=== PATIENT | female | born 1990 | race Caucasian/White ===

== ENCOUNTER 2016-12-07 18:38 | Emergency (ER) | payer OTHER ==
--- NOTE | 2016-12-07 19:41 | ED NURSING NOTES ---
Clinical Report - Nurses [facility] [address] [place] [address] 12/07/2016 18:40 Patient: DAKOTA NOLEN TRIAGE Triage time 18:45 Dec 07 2016. Acuity: LEVEL 3. Chief Complaint: CHEST PAIN and DISCOMFORT. Alert. No acute distress. --18:53 Ananya Frazier R.N. 18:45 12/07/16. BP: 127/90. HR: 102. RR: 18. O2 saturation: 98%. Temp: 98.2 F. Pain level now 5/10. --18:53 Ananya Frazier R.N. Weight: 97.5 kg stated. Height/Length: 66 inches Per Patient. BMI: 34.7. --18:45 Ananya Frazier R.N. Medications None. --18:49 Ananya Frazier R.N. Medication/allergy information source: the patient. --18:53 Ananya Frazier R.N. Allergies Compazine. (tardive dyskinesa) --18:49 Ananya Frazier R.N. History Arrived by private vehicle. Historian: patient. Primary physician (Dr. Guerrero LEAL). ( Right Shoulder pain started last night, now radiates to the right side of chest, radiates to the upper right back. Pt states she has a "physical strenuous job and uses her upper body" and may have overused her shoulder. Pt called into work and staff asked her to get evaluated.). This started last night. 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 PAST MEDICAL HX: Immunizations: seasonal influenza. Last normal menstrual period- period months ago. Uses an intrauterine device. Denies current . SOCIAL HX: Former smoker, end date 04/2016. Alcohol use. No drug use. No marijuana. No infectious disease exposure. FALL RISK ASSESSMENT: Fall risk assessment completed. No fall risk identified. NUTRITIONAL RISK ASSESSMENT: The nutritional risk assessment revealed no deficiencies. FUNCTIONAL ASSESSMENT: Functional assessment: no impairments noted. LEARNING NEEDS ASSESSMENT: The learning needs assessment revealed no barriers. SKIN INTEGRITY ASSESSMENT: Skin integrity risk assessment completed. No skin integrity risk identified. --18:53 Ananya Frazier R.N. PROBLEMS: Back Pain. Renal Colic. Ureterolithiasis. Pyelonephritis. Urinary Calculi. Nephrolithiasis. Kidney. Abdominal Pain. Gastroenteritis. Ovarian Cyst. Immunizations. Pharyngitis. Glaucoma. Bronchitis. Sinusitis. LNMP - Last Normal Menstrual Period. --18:51 Ananya Frazier R.N. ADDITIONAL SURGERIES: Cataract Surgery. Cholecystectomy. Eye surgery . --18:51 Ananya Frazier R.N. Interventions ID band on patient. To room. --18:53 Ananya Frazier R.N. NURSING PROGRESS NOTES matrix drier tender, pulse oximeter and NIBP monitor placed on patient; client services associate- Lead II. Patient gowned. Head of bed elevated. Reassurance given. --18:53 Ananya Frazier R.N. ( Pt has been seen by PA.). --18:53 Ananya Frazier R.N. Patient ID band checked for patient name: patient confirmed. Instructions provided to collect clean catch urine and patient verbalized understanding. Clean catch urine collected with return of yellow-colored clear urine; sample sent to lab for urinalysis, culture and HCG. Specimen labeled in the presence of the patient (POC = neg.). --19:07 Jovita Weiner R.N. EKG time: (1927). EKG was ordered, performed by a tech and shown to the PA. --19:35 Dana Sanderson. DISPOSITION / DISCHARGE Condition at departure: improved. No learning barriers present. Discharge instructions provided and reviewed with the patient. Reviewed medication(s) side effects, precautions, dosing and course information. Prescription(s) given to the patient. Patient verbalized understanding. Written instructions provided in Malaysian. The patient was discharged home. She left the Emergency Department ambulatory and via private vehicle. Patient driving. Medication list reviewed and validated. --22:42 Jovita Weiner R.N. 19:50 12/07/16. BP: 130/74. HR: 69. RR: 20. O2 saturation: 100%. Temp: deferred. Pain level now: 04/04. 18:45 12/07/16. BP: 127/90. HR: 102. RR: 18. O2 saturation: 98%. Temp: 98.2 F. Pain level now 03/04. --22:42 Jovita Weiner R.N. Locked/Released at 12/07/2016 22:42 by Jovita Weiner R.N.
--- NOTE | 2016-12-07 19:41 | ED ORDER SUMMARY ---
..... Patient: DAKOTA NOLEN OrderSheet [facility] VisitID: [id number] [address] [place] [address] 26y, F Registration Date/Time: 12/07/2016 ORDER SHEET Weight: 97.5 kg (stated) Allergies: Compazine GENERAL ORDERS: Chest 2V Urgent (18:52 12/07/2016 EKoroleva P.A.-C) (Ack 19:18 AMcQuoid ER Tech1) (19:20 Paul) Machine Etcher (Continuous) (18:52 12/07/2016 EKoroleva P.A.-C) (18:53 SBalde R.N.) Urine Urgent (18:52 12/07/2016 EKoroleva P.A.-C) (Cancelled: Physician Order18:56 SBalde R.N.) EKG - ER Stat (18:52 12/07/2016 EKoroleva P.A.-C) (Ack 19:18 AMcQuoid ER Tech1) (19:40 Maddi) POC - Urine hCG (18:55 12/07/2016 SBalde R.N. verbal order read back to EKoroleva P.A.-C) (19:06 Toño Franklin) MEDICATION ORDERS: IV FLUIDS: ORDER SHEET NOTES: [Electronically signed by Ann Traore P.A.-C (20:32 12/07/2016)] [Electronically signed by Jovita Weiner R.N. (22:42 12/07/2016)] [Electronically locked/signed by Jovita Weiner R.N. (22:42 12/07/2016)]
--- NOTE | 2016-12-07 19:41 | ED ORDER SUMMARY ---
..... Patient: DAKOTA NOLEN OrderSheet [facility] VisitID: [id number] [address] [place] [address] 26y, F Registration Date/Time: 12/07/2016 ORDER SHEET Weight: 97.5 kg (stated) Allergies: Compazine GENERAL ORDERS: Chest 2V Urgent (18:52 12/07/2016 EKoroleva P.A.-C) (Ack 19:18 AMcQuoid ER Tech1) (19:20 Paul) Clinical Faculty (Continuous) (18:52 12/07/2016 EKoroleva P.A.-C) (18:53 SBalde R.N.) Urine Urgent (18:52 12/07/2016 EKoroleva P.A.-C) (Cancelled: Physician Order18:56 SBalde R.N.) EKG - ER Stat (18:52 12/07/2016 EKoroleva P.A.-C) (Ack 19:18 AMcQuoid ER Tech1) (19:40 Maddi) POC - Urine hCG (18:55 12/07/2016 SBalde R.N. verbal order read back to EKoroleva P.A.-C) (19:06 Toño Franklin) MEDICATION ORDERS: IV FLUIDS: ORDER SHEET NOTES: [Electronically signed by Ann Traore P.A.-C (20:32 12/07/2016)] [Electronically signed by Jovita Weiner R.N. (22:42 12/07/2016)] [Electronically locked/signed by Jovita Weiner R.N. (22:42 12/07/2016)]
--- NOTE | 2016-12-07 19:41 | ED CLINICAL REPORT ---
Clinical Report - Physicians/Mid Levels [facility] [address] [place] [address] 12/07/2016 18:40 Patient: DAKOTA NOLEN Time Seen: 18:57 Dec 07 2016. Arrived- By private vehicle. Historian- patient. HISTORY OF PRESENT ILLNESS Chief Complaint: CHEST PAIN. It is described as pressure and it is described as located in the right chest area. This started just prior to arrival and is still present. (Patient reports pain over the last 24 hours. Denies any active pain. Patient reports pain worsens with any movement. Patient reports some pain in herupper back as well. Patient was repetitive movements at work, bending over,lifting and pain into the right side. Patient is very predominantly right-handed dominant. No fall or trauma.). REVIEW OF SYSTEMS No chills, cough, pedal edema, calf pain or fainting episodes. No headache, sore throat, blurred vision or difficulty with urination. All systems otherwise negative, except as recorded above. SOCIAL HISTORY No drug use. ADDITIONAL NOTES The nursing notes have been reviewed. PHYSICAL EXAM Vital Signs: 12/07/2016 18:45 BP: 127/90. HR: 102. RR: 18. O2 saturation: 98%. Temp: 98.2 F. Appearance: Alert. Eyes: Eyes normal inspection. ENT: Nose normal. Pharynx normal. CVS: Normal heart rate and rhythm. Heart sounds normal. Respiratory: No respiratory distress. No respiratory distress. Chest pain reproducible (on r. anterior side). Breath sounds normal. Chest nontender. No retractions. Abdomen: Soft. Back: Normal external inspection. No CVA tenderness. Skin: Skin warm. Normal skin color. Extremities: Extremities exhibit normal ROM. No clubbing present. No calf tenderness. LABS, X-RAYS, AND EKG EKG: EKG time: (1927). No acute process. No acute ischemia. Normal EKG. Rate: 85. Normal P waves. Normal JOVAN. Normal QRS complex. Normal axis. Normal ST and T waves and QT. The study has been interpreted contemporaneously. The study has been independently viewed by me. The EKG appears to be a good tracing. Chest X-ray: No acute disease. Normal lung markings present. Normal heart size. Mediastinum normal. Great vessels normal. No infiltrate. No fracture. No bony lesion present. Interpretation time: 1929. PROGRESS AND PROCEDURES Course of Care: Patient stable. Pain is reproducible on exam to palpation, as well as with elevation of the arm movement. Patient to follow up outpatient. EKG chest x-ray unremarkable. No other cardiac risk factors. Pain is musculoskeletal in nature. No recent systemic symptoms or illness. Patient is stable. Physical exam findings are improved. Symptoms better. Patient/family counseled. Disposition: Discharged. CLINICAL IMPRESSION Acute anterior chest wall myofascial strain INSTRUCTIONS No strenuous activity for three days (limit lifting with Right Arm). Avoid stimulants (such as cigarettes, coffee, cold medicines, sinus medicines, street drugs). (ice motrin 800 mg heat in am). Warnings: Further evaluation is necessary. Prescription Medications: Ibuprofen 800 mg tablets: take 1 tablet orally every 8 hours for 5 days, as needed for pain. Dispense fifteen (15). No refill. Flexeril 10 mg: Take 1 orally every 8 hours as needed for muscle spasm. Dispense twenty (20). No refills. Substitution is permissible. Follow-up: Follow up with your doctor in three days. (Electronically signed by Ann Traore P.A.-C 12/07/2016 20:32)
--- NOTE | 2016-12-07 19:41 | ED NURSING NOTES ---
Clinical Report - Nurses [facility] [address] [place] [address] 12/07/2016 18:40 Patient: DAKOTA NOLEN TRIAGE Triage time 18:45 Dec 07 2016. Acuity: LEVEL 3. Chief Complaint: CHEST PAIN and DISCOMFORT. Alert. No acute distress. --18:53 Ananya Frazier R.N. 18:45 12/07/16. BP: 127/90. HR: 102. RR: 18. O2 saturation: 98%. Temp: 98.2 F. Pain level now 5/10. --18:53 Ananya Frazier R.N. Weight: 97.5 kg stated. Height/Length: 66 inches Per Patient. BMI: 34.7. --18:45 Ananya Frazier R.N. Medications None. --18:49 Ananya Frazier R.N. Medication/allergy information source: the patient. --18:53 Ananya Frazier R.N. Allergies Compazine. (tardive dyskinesa) --18:49 Ananya Frazier R.N. History Arrived by private vehicle. Historian: patient. Primary physician (Dr. Guerrero LEAL). ( Right Shoulder pain started last night, now radiates to the right side of chest, radiates to the upper right back. Pt states she has a "physical strenuous job and uses her upper body" and may have overused her shoulder. Pt called into work and staff asked her to get evaluated.). This started last night. 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 (Hot Pack). PAST MEDICAL HX: Immunizations: seasonal influenza. Last normal menstrual period- period months ago. Uses an intrauterine device. Denies current . SOCIAL HX: Former smoker, end date 04/2016. Alcohol use. No drug use. No marijuana. No infectious disease exposure. FALL RISK ASSESSMENT: Fall risk assessment completed. No fall risk identified. NUTRITIONAL RISK ASSESSMENT: The nutritional risk assessment revealed no deficiencies. FUNCTIONAL ASSESSMENT: Functional assessment: no impairments noted. LEARNING NEEDS ASSESSMENT: The learning needs assessment revealed no barriers. SKIN INTEGRITY ASSESSMENT: Skin integrity risk assessment completed. No skin integrity risk identified. --18:53 Ananya Frazier R.N. PROBLEMS: Back Pain. Renal Colic. Ureterolithiasis. Pyelonephritis. Urinary Calculi. Nephrolithiasis. Kidney. Abdominal Pain. Gastroenteritis. Ovarian Cyst. Immunizations. Pharyngitis. Glaucoma. Bronchitis. Sinusitis. LNMP - Last Normal Menstrual Period. --18:51 Ananya Frazier R.N. ADDITIONAL SURGERIES: Cataract Surgery. Cholecystectomy. Eye surgery . --18:51 Ananya Frazier R.N. Interventions ID band on patient. To room. --18:53 Ananya Frazier R.N. NURSING PROGRESS NOTES zinc chloride operator, pulse oximeter and NIBP monitor placed on patient; jail keeper- Lead II. Patient gowned. Head of bed elevated. Reassurance given. --18:53 Ananya Frazier R.N. ( Pt has been seen by PA.). --18:53 Ananya Frazier R.N. Patient ID band checked for patient name: patient confirmed. Instructions provided to collect clean catch urine and patient verbalized understanding. Clean catch urine collected with return of yellow-colored clear urine; sample sent to lab for urinalysis, culture and HCG. Specimen labeled in the presence of the patient (POC = neg.). --19:07 Jovita Weiner R.N. EKG time: (1927). EKG was ordered, performed by a tech and shown to the PA. --19:35 Dana Sanderson. DISPOSITION / DISCHARGE Condition at departure: improved. No learning barriers present. Discharge instructions provided and reviewed with the patient. Reviewed medication(s) side effects, precautions, dosing and course information. Prescription(s) given to the patient. Patient verbalized understanding. Written instructions provided in Tanzanian. The patient was discharged home. She left the Emergency Department ambulatory and via private vehicle. Patient driving. Medication list reviewed and validated. --22:42 Jovita Weiner R.N. 19:50 12/07/16. BP: 130/74. HR: 69. RR: 20. O2 saturation: 100%. Temp: deferred. Pain level now: 04/04. 18:45 12/07/16. BP: 127/90. HR: 102. RR: 18. O2 saturation: 98%. Temp: 98.2 F. Pain level now 03/04. --22:42 Jovita Weiner R.N. Locked/Released at 12/07/2016 22:42 by Jovita Weiner R.N.
--- NOTE | 2016-12-07 22:42 | ED MED RECONCILIATION SUMMARY ---
Patient: DAKOTA NOLEN Medication Reconciliation Report [facility] VisitID: [id number] [address] [place] [address] 26y, F Registration Date/Time: 12/07/2016 Weight: 97.5 kg Height/Length: 66 in. BMI: 34.7 ALLERGIES: Compazine The patient's Home Medications are listed below: NONE. The source(s) of the original Home Medication information: patient The following Medications were given to the patient in the Emergency Department: None. The following Medications were prescribed to the patient: Ibuprofen 800 mg tablets: take 1 tablet orally every 8 hours for 5 days, as needed for pain. Dispense fifteen (15). No refill. -- Ann Traore, P.A.-Alex Flexeril 10 mg: Take 1 orally every 8 hours as needed for muscle spasm. Dispense twenty (20). No refills. Substitution is permissible. -- Ann Traore, P.A.-C
--- NOTE | 2016-12-07 22:42 | ED MAR SUMMARY ---
..... Medication Administration Record [facility] [address] [place], [place] [id number] Patient: DAKOTA NOLEN Visit ID: [id number] 26y, F Weight: 97.5 kg Height/Length: 66 in BMI: 34.7 ALLERGIES: Compazine
--- NOTE | 2016-12-07 22:42 | ED MED RECONCILIATION SUMMARY ---
Patient: DAKOTA NOLEN Medication Reconciliation Report [facility] VisitID: [id number] [address] [place] [address] 26y, F Registration Date/Time: 12/07/2016 Weight: 97.5 kg Height/Length: 66 in. BMI: 34.7 ALLERGIES: Compazine The patient's Home Medications are listed below: NONE. The source(s) of the original Home Medication information: patient The following Medications were given to the patient in the Emergency Department: None. The following Medications were prescribed to the patient: Ibuprofen 800 mg tablets: take 1 tablet orally every 8 hours for 5 days, as needed for pain. Dispense fifteen (15). No refill. -- Ann Traore, P.A.-Alex Flexeril 10 mg: Take 1 orally every 8 hours as needed for muscle spasm. Dispense twenty (20). No refills. Substitution is permissible. -- Ann Traore, P.A.-C
--- NOTE | 2016-12-07 22:42 | ED MAR SUMMARY ---
..... Medication Administration Record [facility] [address] [place] [place], [place] [id number] Patient: DAKOTA NOLEN Visit ID: [id number] 26y, F Weight: 97.5 kg Height/Length: 66 in BMI: 34.7 ALLERGIES: Compazine
--- NOTE | 2016-12-07 22:42 | ED DISCHARGE INSTRUCTIONS ---
Patient: DAKOTA NOLEN General Instructions [facility] VisitID: [id number] [place] [address] 26y, F Registration Date/Time: 12/07/2016 Acute anterior chest wall myofascial strain INSTRUCTIONS No strenuous activity for three days (limit lifting with Right Arm). Avoid stimulants (such as cigarettes, coffee, cold medicines, sinus medicines, street drugs). (ice motrin 800 mg heat in am). Warnings: Further evaluation is necessary. Prescription Medications: Ibuprofen 800 mg tablets: take 1 tablet orally every 8 hours for 5 days, as needed for pain. Dispense fifteen (15). No refill. Flexeril 10 mg: Take 1 orally every 8 hours as needed for muscle spasm. Dispense twenty (20). No refills. Substitution is permissible. Follow-up: Follow up with your doctor in three days. ADDITIONAL INFORMATION Chest Strain A strain of the chest is due to stretching and tearing of the muscle fibers between the ribs. This may occur as a result of severe coughing, strenuous lifting or twisting injuries of the upper back. This usually causes increased pain with movement or deep breathing. This may take a few days to a few weeks to heal. Home Care: Rest. Avoid heavy lifting or strenuous exertion. Avoid any activity that causes pain. If you have a severe cough, use a cough syrup such as Robitussin DM (containing dextromethorphan) unless another cough medicine was prescribed. You may use acetaminophen (Tylenol) or ibuprofen (Motrin, Advil) to control pain, unless another medicine was prescribed. [ NOTE: If you have chronic liver or kidney disease or ever had a stomach ulcer or GI bleeding, talk with your doctor before using these medicines.] Follow Up with your doctor as directed. Get Prompt Medical Attention if any of the following occur: A change in the type of pain: if it feels different, becomes more severe, lasts longer, or begins to spread into your shoulder, arm, neck, jaw or back Shortness of breath or increased pain with breathing Cough with dark colored sputum (phlegm) or blood Weakness, dizziness, or fainting Fever of 100.4F (38C) or higher, or as directed by your healthcare provider You have been given the following additional information: Chest Wall Strain No strenuous activity for three days (limit lifting with Right Arm). (Electronically signed by Ann Traore P.A.-C 12/07/2016 20:32)
--- NOTE | 2016-12-07 23:30 | DIAGNOSTIC IMAGING REPORT ---
PROCEDURE: XR CHEST 2 VIEW INDICATION: CHEST PAIN TECHNIQUE: PA and lateral views. COMPARISON: Compared to chest x-ray on 11/13/2011. FINDINGS: Allowing for suboptimal inspiration, lungs are clear. Heart and mediastinum are normal. Thorax is normal. IMPRESSION: 1. Negative chest.
== END 2016-12-07 19:50 | disposition home or self-care (01) ==
LOC: ED SRH 18:38
DX: S29.011A Strain of muscle and tendon of front wall of thorax, initial encounter (principal); X50.0XXA Overexertion from strenuous movement or load, initial encounter; Y93.9 Activity, unspecified; Y92.9 Unspecified place or not applicable; Y99.0 Civilian activity done for income or pay; Z87.891 Personal history of nicotine dependence

== ENCOUNTER 2017-04-20 23:36 | Emergency (ER) | payer OTHER ==
--- NOTE | 2017-04-21 00:36 | ED NURSING NOTES ---
Clinical Report - Nurses [facility] [address] [place] [address] 04/20/2017 23:37 Patient: DAKOTA NOLEN DISPOSITION / DISCHARGE Departure time: 3. The patient left the Emergency Department before triage. ( Registration informed ED insulation power unit tender that the patient had left, insulation power unit tender informed me.). --00:35 Marques Mcconnell R.N. Locked/Released at 04/21/2017 1:35 by Marques Mcconnell R.N.
--- NOTE | 2017-04-21 00:36 | ED NURSING NOTES ---
Clinical Report - Nurses [facility] [address] [place] [address] 04/20/2017 23:37 Patient: DAKOTA NOLEN DISPOSITION / DISCHARGE Departure time: 3. The patient left the Emergency Department before triage. ( Registration informed ED community service specialist that the patient had left, community service specialist informed me.). --00:35 Marques Mcconnell R.N. Locked/Released at 04/21/2017 1:35 by Marques Mcconnell R.N.
--- NOTE | 2017-04-21 01:36 | ED MAR SUMMARY ---
..... Medication Administration Record [facility] [address] [place], [place] [id number] Patient: DAKOTA NOLEN Visit ID: [id number] 26y, F Weight: (not available) Height/Length: (not available) BMI: (not available) ALLERGIES:
--- NOTE | 2017-04-21 01:36 | ED MED RECONCILIATION SUMMARY ---
Patient: DAKOTA NOLEN Medication Reconciliation Report [facility] VisitID: [id number] [address] [place] [address] 26y, F Registration Date/Time: 04/20/2017 Weight: (not available) Height/Length: (not available) BMI: (not available) ALLERGIES: The patient's Home Medications are listed below: Not obtained. The source(s) of the original Home Medication information: Not obtained. The following Medications were given to the patient in the Emergency Department: None. The following Medications were prescribed to the patient: None.
--- NOTE | 2017-04-21 01:36 | ED MAR SUMMARY ---
..... Medication Administration Record [facility] [address] [place], [place] [id number] Patient: DAKOTA NOLEN Visit ID: [id number] 26y, F Weight: (not available) Height/Length: (not available) BMI: (not available) ALLERGIES:
--- NOTE | 2017-04-21 01:36 | ED MED RECONCILIATION SUMMARY ---
Patient: DAKOTA NOLEN Medication Reconciliation Report [facility] VisitID: [id number] [address] [place] [address] 26y, F Registration Date/Time: 04/20/2017 Weight: (not available) Height/Length: (not available) BMI: (not available) ALLERGIES: The patient's Home Medications are listed below: Not obtained. The source(s) of the original Home Medication information: Not obtained. The following Medications were given to the patient in the Emergency Department: None. The following Medications were prescribed to the patient: None.
== END 2017-04-21 00:04 | disposition left against medical advice (07) ==
LOC: ED SRH 23:36
DX: Z53.21 Procedure and treatment not carried out due to patient leaving prior to being seen by health care provider (principal)